=== PATIENT | male | born 1945 | race Caucasian/White ===

== ENCOUNTER 2017-11-30 07:28 | Day surgery (SDC) | payer MEDICARE, OTHER ==
[~2017-11-30 07:28] MED LIST: BUPIVACAINE HCL 0.75% INJ/PF (7.5 MG/1 ML) 10 ML SDV OS PRN; KETOROLAC TROMETHAMINE 0.45% 4 DROP/0.4 ML DROPERETTE OS PRN; LIDOCAINE 4% INJ/PF (40 MG/ML) 5 ML AMPUL OS PRN
[2017-11-30] MEDS ORDERED: EPINEPHRINE INJ/PF 1 MG/1 ML AMPULE ONE (07:35)
[2017-11-30] MEDS ORDERED: CHONDR SU A NA/HYALUR INTRAOC KIT (SURGICARE) ONE (07:35)
[2017-11-30] MEDS: TETRACAINE HCL 0.5% OPH SOLN 0.6 ML DROPERETTE OS PRN ×2 (08:19→08:45)
[2017-11-30] MEDS: CYCLOPENTOLATE 0.2%/PHENYLEPHRINE 1% OPH SOLN 2 ML OS PRN ×3 (08:20→08:42)
[2017-11-30] MEDS: TROPICAMIDE 1% OPH SOLN 3 ML OS PRN ×3 (08:20→08:42)
[2017-11-30] MEDS: BESIFLOXACIN HCL 0.6% OPH SUSP 5 ML BOTTLE OS PRN ×3 (08:21→09:25)
[2017-11-30] MEDS ORDERED: MIDAZOLAM 2 MG/2 ML INJ ONE (08:33)
[2017-11-30] MEDS ORDERED: FENTANYL CITRATE INJ/PF 100 MCG/2 ML AMPUL ONE (08:33)
[2017-11-30] MEDS ORDERED: LIDOCAINE 1% INJ-PF (10 MG/ML) 30 ML SDV ONE (09:30)
--- NOTE | 2017-11-30 10:01 | [facility] OPERATIVE REPORT E ---
[facility] Operative Report NAME: BLESSING MCCLAIN AGE: 72Y DATE OF SURGERY: 11/30/2017 ROOM: PREOPERATIVE DIAGNOSIS: Cataract, left eye. POSTOPERATIVE DIAGNOSIS: Cataract, left eye. PROCEDURE PERFORMED: Phacoemulsification with posterior chamber intraocular lens, left eye. SURGEON: LURDES CARTWRIGHT M.D. ANESTHESIA: Topical with MAC. INDICATIONS FOR SURGERY: Difficulty reading road signs and words on TV. Best corrected visual acuity 20/50. PROCEDURE: The patient was brought to the Operating Room and placed on the operative table. Following tetracaine drops, topical anesthesia was administered. This consisted of instrument wipe pledgets soaked in a solution of 4% Xylocaine mixed with 0.75% Marcaine in a 1:2 ratio. A 2 x 1 cm pledget was placed in the superior fornix. A 1 x 1 cm pledget was placed in the inferior fornix. The eye was patched shut for 5 minutes. The patch was removed. The eye was sterilely prepped and draped in the usual manner. Lid speculum was placed in the eye. The pledgets were removed. 4-0 black silk sutures were placed around the superior and the inferior rectus muscles to be used as traction. A conjunctival peritomy was made at the 10 o'clock position. Hemostasis was obtained with bipolar cautery. A posterior limbal groove was created using a crescent knife and dissected anteriorly towards the cornea. A sharp point blade was used to create a paracentesis site at the 2 o'clock position. A 2.4 mm keratome was used to enter the anterior chamber through the groove. Viscoelastic was injected into the anterior chamber. An anterior capsulotomy was performed using Utrata forceps in a capsulorrhexis fashion. Hydrodissection and hydrodelineation were performed. Phacoemulsification was performed in veoybh-myr-meokdes technique. A total of 8.39 CDE phaco time was used. Following this, the I/A unit was used to remove residual cortex. Viscoelastic was injected into the capsular bag. Intraocular lens model SN60WF, 19.5 diopters, serial number [id number] was placed in the capsular bag. The I/A unit was used to remove residual viscoelastic. The wound was seen to be watertight under high and low pressure, and no sutures were placed. The intraocular lens was well centered. The pressure was adjusted in the eye to normal pressure. The 4-0 black silk sutures and lid speculum were removed. The eye was shielded after Besivance drops were placed. The patient tolerated the procedure well and was sent to the Recovery Room in good condition. DICTATING PHYSICIAN: LURDES CARTWRIGHT M.D. [id number] PHY#: [id number] ID: [id number] JOB#: [id number] ACCT: [id number] cc:LURDES CARTWRIGHT M.D. >
--- NOTE | 2017-11-30 10:06 | [facility] DISCHARGE SUMMARY E ---
[facility] Discharge Summary NAME: BLESSING MCCLAIN AGE: 72Y ADMITTED: 11/30/2017 DISCHARGED: 11/30/2017 HOSPITAL COURSE: The patient is a 72-year-old gentleman who underwent uneventful cataract extraction with intraocular lens implant left eye on 11/30/2017. He will be discharged to home. He is instructed to resume preoperative medications, to take Tylenol as needed for discomfort, to keep his eye shielded, to use Durezol, Prolensa, and Besivance at 3 p.m. and 8 p.m., and to follow up in my office in 1 day. DICTATING PHYSICIAN: LURDES CARTWRIGHT M.D. [id number] PHY#: [id number] ID: [id number] JOB#: [id number] ACCT: [id number] cc:LURDES CARTWRIGHT M.D. >
== END 2017-11-30 10:00 | disposition home or self-care (01) ==
LOC: SC 07:28
PROVIDERS: ATTEND Ophthalmology
DX: H25.813 Combined forms of age-related cataract, bilateral (principal); E11.9 Type 2 diabetes mellitus without complications; I10 Essential (primary) hypertension; J44.9 Chronic obstructive pulmonary disease, unspecified; M19.90 Unspecified osteoarthritis, unspecified site; G40.909 Epilepsy, unspecified, not intractable, without status epilepticus; Z79.51 Long term (current) use of inhaled steroids; Z79.899 Other long term (current) drug therapy; Z87.891 Personal history of nicotine dependence
CPT/HCPCS: 66984; 82962; V2632; J2250; J3490 ×4; A9270; J0171; J3010; 142

== ENCOUNTER 2017-12-14 06:27 | Day surgery (SDC) | payer MEDICARE, OTHER ==
[2017-12-14] MEDS: BESIFLOXACIN HCL 0.6% OPH SUSP 5 ML BOTTLE OS PRN ×4 (06:50→08:01)
[2017-12-14] MEDS: CYCLOPENTOLATE 0.2%/PHENYLEPHRINE 1% OPH SOLN 2 ML OS PRN ×3 (06:50→07:15)
[2017-12-14] MEDS: TETRACAINE HCL 0.5% OPH SOLN 0.6 ML DROPERETTE OS PRN ×2 (06:50→07:15)
[2017-12-14] MEDS: TROPICAMIDE 1% OPH SOLN 3 ML OS PRN ×3 (06:50→07:15)
[2017-12-14] MEDS ORDERED: LIDOCAINE 1% INJ-PF (10 MG/ML) 30 ML SDV ONE (07:16)
[2017-12-14] MEDS ORDERED: EPINEPHRINE INJ/PF 1 MG/1 ML AMPULE ONE (07:16)
[2017-12-14] MEDS ORDERED: CHONDR SU A NA/HYALUR INTRAOC KIT (SURGICARE) ONE (07:16)
[2017-12-14] MEDS ORDERED: MIDAZOLAM 2 MG/2 ML INJ ONE (07:22)
[2017-12-14] MEDS ORDERED: LIDOCAINE 1%/PHENYLEPHRINE 1.5% 1 ML VIAL ONE (07:26)
[2017-12-14] MEDS ORDERED: FENTANYL CITRATE INJ/PF 100 MCG/2 ML AMPUL ONE (07:43)
--- NOTE | 2017-12-14 10:20 | [facility] OPERATIVE REPORT E ---
[facility] NAME: BLESSING MCCLAIN AGE: 72Y DATE OF SURGERY: 12/14/2017 ROOM: PREOPERATIVE DIAGNOSIS: RETAINED CORTICAL FRAGMENT, LEFT EYE. POSTOPERATIVE DIAGNOSIS: RETAINED CORTICAL FRAGMENT, LEFT EYE. PROCEDURE PERFORMED: REMOVAL OF CORTICAL LENS FRAGMENT, LEFT EYE. SURGEON: LURDES CARTWRIGHT MD ANESTHESIA: TOPICAL WITH MAC. INDICATIONS FOR SURGERY: Retained cortical lens fragment into the visual axis. PROCEDURE: In preoperative holding area, topical anesthesia was administered. This consisted of instrument wipe pledgets soaked in a solution of 4% Xylocaine mixed with 0.75% Marcaine in a 1:2 ratio. A 2 x 1 cm pledget was placed in the superior fornix. A 1 x 1 cm pledget was placed in the inferior fornix. The eye was patched shut for 5 minutes. The patient was taken to the operating room where the patch and pledgets were removed. The eye was sterilely prepped and draped in the usual manner. Lid speculum was placed in the eye. Then 4-0 black silk sutures were placed around the superior and the inferior rectus muscles to be used as traction. Using the previous cataract incision, the Visco cannula was entered through that incision and Visco was injected into the eye. The lens was mobilized and BSS and Visco was injected inferior to the lens, releasing the retained superior cortex. The eye unit was used to remove residual cortex. The wound did seem to be water tight under high and low pressure and no sutures were placed. The 4-0 black silk sutures and lid speculum were removed. The eye was shielded after Besivance drops were placed. The patient tolerated the procedure well and was sent to the Recovery Room in good condition. DICTATING PHYSICIAN: LURDES CARTWRIGHT M.D. DICTATING PHYSICIAN: LURDES CARTWRIGHT M.D. [id number] PHY#: [id number] ID: [id number] JOB#: [id number] ACCT: [id number] cc:LURDES CARTWRIGHT M.D. >
--- NOTE | 2017-12-14 10:21 | [facility] DISCHARGE SUMMARY E ---
[facility] Discharge Summary NAME: BLESSING MCCLAIN AGE: 72Y ADMITTED: 12/14/2017 DISCHARGED: 12/14/2017 FINAL DIAGNOSIS: REMOVAL OF RETAINED CORTEX, LEFT EYE. HOSPITAL COURSE: The patient is a 72-year-old gentleman who underwent uneventful removal of retained cortex, left eye on 12/14/2017. He will be discharged to home. He is instructed to resume preoperative medications, take Tylenol as needed for discomfort, to keep his eye shielded, to use Besivance, Durezol and Ilevro at 3 p.m. and 8 p.m., and to follow up in my office later this afternoon. DICTATING PHYSICIAN: LURDES CARTWRIGHT M.D. [id number] PHY#: [id number] ID: [id number] JOB#: [id number] ACCT: [id number] cc:LURDES CARTWRIGHT M.D. >
== END 2017-12-14 08:46 | disposition home or self-care (01) ==
LOC: SC 06:27
PROVIDERS: ATTEND Ophthalmology
DX: H59.022 Cataract (lens) fragments in eye following cataract surgery, left eye (principal); H25.811 Combined forms of age-related cataract, right eye; E11.9 Type 2 diabetes mellitus without complications; I10 Essential (primary) hypertension; J44.9 Chronic obstructive pulmonary disease, unspecified; M19.90 Unspecified osteoarthritis, unspecified site; Z87.891 Personal history of nicotine dependence; Z79.899 Other long term (current) drug therapy; Z79.51 Long term (current) use of inhaled steroids
CPT/HCPCS: 66840; 82962; J2250; J3490 ×3; A9270; J0171; J3010; J2370; 142

== ENCOUNTER 2018-01-18 08:11 | Day surgery (SDC) | payer MEDICARE, OTHER ==
[~2018-01-18 08:11] MED LIST changes: +BUPIVACAINE HCL 0.75% INJ/PF (7.5 MG/1 ML) 10 ML SDV OD PRN; -BUPIVACAINE HCL 0.75% INJ/PF (7.5 MG/1 ML) 10 ML SDV OS PRN; +CHONDR SU A NA/HYALUR INTRAOC KIT (SURGICARE) ONE; +EPINEPHRINE INJ/PF 1 MG/1 ML AMPULE ONE; +KETOROLAC TROMETHAMINE 0.45% 4 DROP/0.4 ML DROPERETTE OD PRN; -KETOROLAC TROMETHAMINE 0.45% 4 DROP/0.4 ML DROPERETTE OS PRN; +LIDOCAINE 1%/PHENYLEPHRINE 1.5% 1 ML VIAL ONE; +LIDOCAINE 4% INJ/PF (40 MG/ML) 5 ML AMPUL OD PRN; -LIDOCAINE 4% INJ/PF (40 MG/ML) 5 ML AMPUL OS PRN; +MIDAZOLAM 2 MG/2 ML INJ ONE
[2018-01-18] MEDS: BESIFLOXACIN HCL 0.6% OPH SUSP 5 ML BOTTLE OD PRN ×4 (08:38→09:51)
[2018-01-18] MEDS: TROPICAMIDE 1% OPH SOLN 3 ML OD PRN ×3 (08:38→08:58)
[2018-01-18] MEDS: CYCLOPENTOLATE 0.2%/PHENYLEPHRINE 1% OPH SOLN 2 ML OD PRN ×3 (08:38→08:58)
[2018-01-18] MEDS: TETRACAINE HCL 0.5% OPH SOLN 0.6 ML DROPERETTE OD PRN ×2 (08:39→08:58)
[2018-01-18] MEDS: DORZOLAMIDE HCL 2%/TIMOLOL MALEAT 0.5% OPH SOLN 10 ML OD PRN ×2 (09:38→09:51)
--- NOTE | 2018-01-18 10:06 | [facility] OPERATIVE REPORT E ---
[facility] Operative Report NAME: BLESSING MCCLAIN AGE: 72Y DATE OF SURGERY: 01/18/2018 ROOM: PREOPERATIVE DIAGNOSIS: Cataract, right eye. POSTOPERATIVE DIAGNOSIS: Cataract, right eye. PROCEDURE PERFORMED: Phacoemulsification with posterior chamber intraocular lens, right eye. SURGEON: LURDES CARTWRIGHT M.D. ANESTHESIA: Topical with MAC. INDICATIONS FOR SURGERY: Difficulty driving at night. Best corrected visual acuity 20/60. PROCEDURE: The patient was brought to the operating room and placed on the operative table. Following tetracaine drops, topical anesthesia was administered. This consisted of instrument wipe pledgets soaked in a solution of 4% Xylocaine mixed with 0.75% Marcaine in a 1:2 ratio. A 2 x 1 cm pledget was placed in the superior fornix. A 1 x 1 cm pledget was placed in the inferior fornix. The eye was patched shut for 5 minutes. The patch was removed. The eye was sterilely prepped and draped in the usual manner. Lid speculum was placed in the eye. The pledgets were removed and 4-0 black silk sutures were placed around the superior and the inferior rectus muscles to be used as traction. A conjunctival peritomy was made at the 10 o'clock position. Hemostasis was obtained with bipolar cautery. A posterior limbal groove was created using a crescent knife and dissected anteriorly towards the cornea. A sharp point blade was used to create a paracentesis site at the 2 o'clock position. A 2.4 mm keratome was used to enter the anterior chamber through the groove. Viscoelastic was injected into the anterior chamber. An anterior capsulotomy was performed using Utrata forceps in a capsulorrhexis fashion. Hydrodissection and hydrodelineation were performed. Phacoemulsification was performed in oevjpg-aod-csrzhkw technique. A total of 52 seconds phaco time was used. Following this, the I/A unit was used to remove residual cortex. Viscoelastic was injected into the capsular bag. Intraocular lens model SN60WF, 19.0 diopters, serial number [id number], was placed in the capsular bag. The I/A unit was used to remove residual viscoelastic. The wound was seen to be watertight under high and low pressure, and no sutures were placed. The intraocular lens was well centered. The pressure was adjusted in the eye to normal pressure. The 4-0 black silk sutures and lid speculum were removed. The eye was shielded after Besivance drops were placed. The patient tolerated the procedure well and was sent to the recovery room in good condition. DICTATING PHYSICIAN: LURDES CARTWRIGHT M.D. [id number] PHY#: [id number] ID: [id number] JOB#: [id number] ACCT: [id number] cc:LURDES CARTWRIGHT M.D. >
--- NOTE | 2018-01-18 10:07 | [facility] DISCHARGE SUMMARY E ---
[facility] Discharge Summary NAME: BLESSING MCCLAIN AGE: 72Y ADMITTED: 01/18/2018 DISCHARGED: 01/18/2018 FINAL DIAGNOSIS: Cataract, right eye. HOSPITAL COURSE: The patient is a 72-year-old gentleman who underwent uneventful cataract extraction with intraocular lens implant, right eye, on 01/18/2018. He will be discharged to home. He was instructed to resume preoperative medications; to take Tylenol as needed for discomfort; to keep his eye shielded; to use Durezol, Prolensa, and Besivance at 3 p.m. and 8 p.m.; and to follow up in my office in 1 day. DICTATING PHYSICIAN: LURDES CARTWRIGHT M.D. [id number] PHY#: [id number] ID: [id number] JOB#: [id number] ACCT: [id number] cc:LURDES CARTWRIGHT M.D. >
== END 2018-01-18 10:27 | disposition home or self-care (01) ==
LOC: SC 08:11
PROVIDERS: ATTEND Ophthalmology
DX: H25.811 Combined forms of age-related cataract, right eye (principal); H57.03 Miosis; Z96.1 Presence of intraocular lens; J44.9 Chronic obstructive pulmonary disease, unspecified; R73.03 Prediabetes; Z79.51 Long term (current) use of inhaled steroids; Z91.040 Latex allergy status
CPT/HCPCS: 66984; V2632; J2250; J3490 ×3; A9270; J0171; J2370; 142